=== PATIENT | female | born 1995 | race Caucasian/White ===

== ENCOUNTER 2020-04-08 12:52 | Emergency (ER) | payer BC, MEDICAID ==
[~2020-04-08] VITALS: Ht 160 cm; Wt 83.2 kg
[~2020-04-08 12:52] MED LIST: MECL-183 PO
[2020-04-08 13:36] LABS: BASOPHILS % (AUTO) 0.4 % (0-1); EOSINOPHILS # (AUTO) 0.1 X10'3 (0-0.9); EOSINOPHILS % (AUTO) 1.2 % (0-6); HEMATOCRIT 41.2 % (35.0-45.0); HEMOGLOBIN 13.5 g/dl (12.0-16.0); LYMPHOCYTES # (AUTO) 1.4 X10'3 (1.1-4.8); LYMPHOCYTES % (AUTO) 17.9 % (21-51); MEAN CORPUSCULAR HEMOGLOBIN 27.7 PG (27.0-31.0); MEAN CORPUSCULAR HGB CONC 32.7 g/dL (33.0-36.5); MEAN CORPUSCULAR VOLUME 84.7 FL (78-98); MEAN PLATELET VOLUME 8.9 FL (7.4-10.4); MONOCYTES # (AUTO) 0.4 X10'3 (0-0.9); MONOCYTES % (AUTO) 4.8 % (2-12); NEUTROPHILS # (AUTO) 5.8 X10'3 (1.8-7.7); NEUTROPHILS % (AUTO) 75.7 % (42-75); PLATELET COUNT 272 X10'3 (140-440); RED BLOOD COUNT 4.86 X10'6 (4.20-5.60); RED CELL DISTRIBUTION WIDTH 13.5 % (11.5-14.5); WHITE BLOOD COUNT 7.6 X10'3 (4.5-11.0)
[2020-04-08 13:45] VITALS: BP 145/91
[2020-04-08 13:52] LABS: ALANINE AMINOTRANSFERASE 27 U/L (12-78); ALBUMIN 3.6 G/DL (3.4-5.0); ALKALINE PHOSPHATASE 54 IU/L (46-116); ANION GAP 8 (8-16); ASPARTATE AMINO TRANSFERASE 19 U/L (10-37); BILIRUBIN,TOTAL 0.3 MG/DL (0.1-1.0); BLOOD UREA NITROGEN 10 MG/DL (7-18); BUN/CREATININE RATIO 15.2 (6.6-38.0); CALCIUM 9.1 MG/DL (8.5-10.1); CHLORIDE 107 MMOL/L (99-107); CREATININE 0.66 MG/DL (0.40-0.90); GLUCOSE 84 MG/DL (70-104); LIPASE 124 U/L (73-393); SODIUM 141 MMOL/L (135-145); TOTAL CARBON DIOXIDE 26.5 MMOL/L (24-32); TOTAL PROTEIN 7.3 G/DL (6.4-8.2); eGFR > 90 ML/MIN
[2020-04-08 14:08] LABS: CLARITY,URINE CLOUDY (Clear); COLOR,URINE YELLOW (Yellow); GLUCOSE, URINE NEGATIVE (Neg); KETONES,URINE NEGATIVE (Neg); LEUKOCYTE ESTERASE ,URINE NEGATIVE (Neg); NITRITES, URINE NEGATIVE (Neg); OCCULT BLOOD,URINE LARGE (Neg); PH,URINE 5.5 (4.8-8.0); PROTEIN,URINE NEGATIVE (Neg); UROBILINOGEN,URINE 0.2 E.U/dL (0.2-1.0)
[2020-04-08 14:09] LABS: UA COLLECTION TYPE CLN CATCH MIDSTREAM
[2020-04-08 14:10] LABS: URINE HCG NEGATIVE (NEG)
[2020-04-08] MEDS ORDERED: ondansetron 4mg rapidly disintigrating tab PO ONE (14:10)
[2020-04-08] MEDS ORDERED: HYDROcodone/acetaminophen 10/325mg tab PO ONE (14:10)
[2020-04-08 14:21] LABS: BACTERIA,URINE FEW /HPF (Neg); MUCUS STRANDS MODERATE /LPF (Neg); RBC,URINE TNTC /HPF (0-2); SQUAMOUS EPITHELIAL CELL,UR MODERATE /LPF (FEW); WBC,URINE 0-4 /HPF (0-4)
[2020-04-08] MEDS ORDERED: ibuprofen tablet 400 MG TABLET PO ONE (15:00)
--- NOTE | 2020-04-08 15:50 | NUR ---
Pelvic exam done by provider and female nurse for assist. vag. culture sent to lab for culture.
--- NOTE | 2020-04-08 16:06 | NUR ---
US being done @ bedside.
--- NOTE | 2020-04-08 16:30 | NUR ---
Pt given a sanitary pad & stretchy underwear. Pt. states the motrin did not help her pain at all.
[2020-04-08] MEDS ORDERED: IBUP-1984 PO (16:51)
== END 2020-04-08 17:14 | disposition home or self-care (01) ==
LOC: ER 12:52
DX: N83.202 Unspecified ovarian cyst, left side (principal); R10.31 Right lower quadrant pain; R10.32 Left lower quadrant pain; Z79.899 Other long term (current) drug therapy
CPT/HCPCS: 36415; 76700; 76830; 76856; 80053; 81001; 81025; 83690; 85025; 87210; 99285

== ENCOUNTER 2020-11-25 13:38 | Emergency (ER) | payer BC, MEDICAID ==
[~2020-11-25] VITALS: Ht 160 cm; Wt 80.0 kg
[~2020-11-25 13:38] MED LIST changes: -MECL-183 PO; +MECL-226 PO
== END 2020-11-25 15:52 | disposition home or self-care (01) ==
LOC: ER 13:39
DX: J02.9 Acute pharyngitis, unspecified (principal); R42 Dizziness and giddiness; R53.1 Weakness; Z20.828 Contact with and (suspected) exposure to other viral communicable diseases; Z79.899 Other long term (current) drug therapy
CPT/HCPCS: 36415; 87635; 99283

== ENCOUNTER 2021-10-12 14:57 | Emergency (ER) | payer MEDICAID ==
[~2021-10-12] VITALS: Ht 160 cm; Wt 77.3 kg
[2021-10-12] MEDS ORDERED: morphine 4 MG/ML inj SYRINge IV ONE ×3 (15:20→17:40)
[2021-10-12] MEDS ORDERED: ondansetron/PF 4mg/2ml inj IV ONE ×2 (15:20→15:55)
[2021-10-12 15:36] LABS: URINE HCG NEGATIVE (NEG)
[2021-10-12 15:42] LABS: CLARITY,URINE SLIGHTLY CLOUDY (Clear); COLOR,URINE YELLOW (Yellow); GLUCOSE, URINE NEGATIVE (Neg); KETONES,URINE NEGATIVE (Neg); OCCULT BLOOD,URINE MODERATE (Neg); PROTEIN,URINE NEGATIVE (Neg); UA COLLECTION TYPE CLN CATCH MIDSTREAM
[2021-10-12 15:43] LABS: LEUKOCYTE ESTERASE ,URINE NEGATIVE (Neg); NITRITES, URINE NEGATIVE (Neg); UROBILINOGEN,URINE 0.2 E.U/dL (0.2-1.0)
[2021-10-12 15:47] LABS: BASOPHILS % (AUTO) 0.3 % (0-1); EOSINOPHILS # (AUTO) 0.1 X10'3 (0-0.9); EOSINOPHILS % (AUTO) 0.8 % (0-6); HEMATOCRIT 37.8 % (35.0-45.0); HEMOGLOBIN 12.4 g/dl (12.0-16.0); LYMPHOCYTES # (AUTO) 2.4 X10'3 (1.1-4.8); LYMPHOCYTES % (AUTO) 21.1 % (21-51); MEAN CORPUSCULAR HEMOGLOBIN 25.5 PG (27.0-31.0); MEAN CORPUSCULAR HGB CONC 32.9 g/dL (33.0-36.5); MEAN CORPUSCULAR VOLUME 77.5 FL (78-98); MEAN PLATELET VOLUME 8.4 FL (7.4-10.4); MONOCYTES # (AUTO) 0.5 X10'3 (0-0.9); MONOCYTES % (AUTO) 4.1 % (2-12); NEUTROPHILS # (AUTO) 8.5 X10'3 (1.8-7.7); NEUTROPHILS % (AUTO) 73.7 % (42-75); PLATELET COUNT 311 X10'3 (140-440); RED BLOOD COUNT 4.88 X10'6 (4.20-5.60); WHITE BLOOD COUNT 11.5 X10'3 (4.5-11.0)
[2021-10-12 15:53] LABS: ALANINE AMINOTRANSFERASE 32 U/L (12-78); ALBUMIN 3.8 G/DL (3.4-5.0); ALKALINE PHOSPHATASE 61 IU/L (46-116); ANION GAP 14 (8-16); ASPARTATE AMINO TRANSFERASE 17 U/L (10-37); BILIRUBIN,TOTAL 0.2 MG/DL (0.1-1.0); BLOOD UREA NITROGEN 17 MG/DL (7-18); BUN/CREATININE RATIO 22.1 (6.6-38.0); CALCIUM 8.7 MG/DL (8.5-10.1); CHLORIDE 103 MMOL/L (99-107); CREATININE 0.77 MG/DL (0.40-0.90); GLUCOSE 111 MG/DL (70-104); LIPASE 94 U/L (73-393); POTASSIUM 3.3 MMOL/L (3.5-5.1); SODIUM 143 MMOL/L (135-145); TOTAL CARBON DIOXIDE 26.2 MMOL/L (24-32); TOTAL PROTEIN 7.8 G/DL (6.4-8.2); eGFR > 90 ML/MIN
[2021-10-12 16:01] LABS: WBC,URINE 0-4 /HPF (0-4)
[2021-10-12 16:02] LABS: BACTERIA,URINE FEW /HPF (Neg); MUCUS STRANDS FEW /LPF (Neg); SQUAMOUS EPITHELIAL CELL,UR MANY /LPF (FEW)
[2021-10-12] MEDS ORDERED: iohexol 300mg/ml 100ml inj. ONE (16:30)
[2021-10-12] MEDS ORDERED: normal saline 1000ml 1,000 ML IV ONE (17:35)
[2021-10-12] MEDS ORDERED: ketorolac tromethamine 15mg/ml inj. IM ONE (17:35)
[2021-10-12] MEDS ORDERED: ONDA4TAB6 PO (18:12)
[2021-10-12] MEDS ORDERED: FLO0.4C PO (18:12)
[2021-10-12] MEDS ORDERED: HYDR-3965 PO (18:12)
--- NOTE | 2021-10-12 18:30 | NUR ---
ASSUMED CARE OF PT. PT SLEEPING COMFORTABLY IN BED. EQUAL RISE AND FALL OF CHEST.
[2021-10-12 19:19] VITALS: BP 126/72
== END 2021-10-12 19:22 | disposition home or self-care (01) ==
LOC: ER 14:58
DX: N20.9 Urinary calculus, unspecified (principal)
CPT/HCPCS: 36415; 74177; 76856; 80053; 81001; 81025; 83690; 85025; 93976; 96361; 96372; 96374; 96375; 96376; 99285; J1885; J2270; J2405; J7030; Q9967

== ENCOUNTER 2022-09-01 21:05 | Emergency (ER) | payer MEDICAID ==
[~2022-09-01] VITALS: Ht 160 cm; Wt 77.3 kg
[~2022-09-01 21:05] MED LIST changes: +ONDA4TAB6 PO
[2022-09-01 21:46] LABS: BASOPHILS # (AUTO) 0.1 X10'3 (0-0.2); BASOPHILS % (AUTO) 1.1 % (0-1); EOSINOPHILS # (AUTO) 0.1 X10'3 (0-0.9); EOSINOPHILS % (AUTO) 0.8 % (0-6); HEMATOCRIT 39.5 % (35.0-45.0); HEMOGLOBIN 13.3 g/dl (12.0-16.0); LYMPHOCYTES # (AUTO) 1.8 X10'3 (1.1-4.8); LYMPHOCYTES % (AUTO) 17.5 % (21-51); MEAN CORPUSCULAR HEMOGLOBIN 27.6 PG (27.0-31.0); MEAN CORPUSCULAR HGB CONC 33.5 g/dL (33.0-36.5); MEAN CORPUSCULAR VOLUME 82.4 FL (78-98); MEAN PLATELET VOLUME 8.5 FL (7.4-10.4); MONOCYTES # (AUTO) 0.4 X10'3 (0-0.9); NEUTROPHILS # (AUTO) 7.9 X10'3 (1.8-7.7); NEUTROPHILS % (AUTO) 76.6 % (42-75); PLATELET COUNT 273 X10'3 (140-440); RED CELL DISTRIBUTION WIDTH 13.6 % (11.5-14.5); WHITE BLOOD COUNT 10.4 X10'3 (4.5-11.0)
[2022-09-01 21:57] LABS: ALANINE AMINOTRANSFERASE 17 U/L (12-78); ALBUMIN 3.8 G/DL (3.4-5.0); ALKALINE PHOSPHATASE 65 IU/L (46-116); ANION GAP 6 (8-16); ASPARTATE AMINO TRANSFERASE 10 U/L (10-37); BILIRUBIN,TOTAL 0.2 MG/DL (0.1-1.0); BLOOD UREA NITROGEN 12 MG/DL (7-18); BUN/CREATININE RATIO 17.9 (6.6-38.0); CALCIUM 9.1 MG/DL (8.5-10.1); CHLORIDE 104 MMOL/L (99-107); CREATININE 0.67 MG/DL (0.40-0.90); GLUCOSE 146 MG/DL (70-104); SODIUM 138 MMOL/L (135-145); TOTAL CARBON DIOXIDE 27.6 MMOL/L (24-32); TOTAL PROTEIN 7.7 G/DL (6.4-8.2); eGFR > 90 ML/MIN
--- NOTE | 2022-09-01 22:54 | NUR ---
> RECEIVED PT AT ER RM 12, AOX4, CALM AND COOPERATIVE, V/S STABLE , NO KNOWN HX OF CARDIAC IN ORIGIN, DENIES TAKING ANYTHING FOR ANXIETY, HX OF GESTATIONAL DM , NOT ON ANY DAILY MEDS
[2022-09-01 23:09] VITALS: BP 106/68
== END 2022-09-01 23:56 | disposition home or self-care (01) ==
LOC: ER 21:05
DX: F41.9 Anxiety disorder, unspecified (principal); Z98.890 Other specified postprocedural states
CPT/HCPCS: 36415; 71045; 80053; 83880; 84484; 85025; 93005; 99285